=== PATIENT | female | born 1955 | race Caucasian/White ===

== ENCOUNTER 2024-10-11 05:51 | Observation (INO) | payer OTHER ==
[2024-10-06 09:52] VITALS: BP 155/74; PULSE 70; RESP 18; TEMP 97
[2024-10-06 09:53] LABS: BASOPHILS # (AUTO) 0.03 K/uL (0.00-0.20); BASOPHILS % (AUTO) 0.5 % (0.0-5.0); EOSINOPHILS # (AUTO) 0.23 K/uL (0.00-0.70); EOSINOPHILS % (AUTO) 3.9 % (0.0-8.0); HEMATOCRIT 40.6 % (36-48); IMMATURE GRANULOCYTE ABSOLUTE 0.02 K/uL (0-1); LYMPHOCYTES # (AUTO) 1.7 K/uL (1.0-4.8); LYMPHOCYTES % (AUTO) 29.1 % (21.0-51.0); MEAN CORPUSCULAR HEMOGLOBIN 30.6 pg (27.0-33.0); MEAN CORPUSCULAR VOLUME 92.7 fL (79-99); MONOCYTES # (AUTO) 0.6 K/uL (0.1-1.0); MONOCYTES % (AUTO) 10.8 % (3.0-13.0); NEUTROPHILS # (AUTO) 3.2 K/uL (1.8-7.7); NEUTROPHILS % (AUTO) 55.4 % (40.0-77.0); PLATELET COUNT (AUTO) 291 K/uL (130-400); RED BLOOD CELL COUNT(AUTO) 4.38 MIL/uL (4.00-5.50); RED CELL DISTRIBUTION WIDTH 12.7 % (11.0-15.5); WHITE BLOOD COUNT (AUTO) 5.9 K/uL (4.8-10.8)
--- NOTE | 2024-10-06 10:25 | NUR ---
RE: IS INITIAL IS INITIAL TEACHING DONE BY RT KAITLYNN DURING PREOP
[2024-10-06 11:20] LABS: APPEARANCE,URINE CLEAR (CLEAR); BILIRUBIN,URINE NEGATIVE (NEGATIVE); COLOR,URINE YELLOW (YELLOW); GLUCOSE, URINE (UA) NEGATIVE (NEGATIVE); KETONES,URINE NEGATIVE (NEGATIVE); LEUKOCYTE ESTERASE ,URINE 250 Leu/uL (NEGATIVE); NITRATE,URINE NEGATIVE (NEGATIVE); OCCULT BLOOD,URINE NEGATIVE (NEGATIVE); PROTEIN,URINE NEGATIVE (NEGATIVE); UROBILINOGEN,URINE 0.2 mg/dL (0.2-1.0)
[2024-10-06 11:25] LABS: ADD UA MICROSCOPIC YES
[2024-10-06 11:27] LABS: MUCUS,URINE RARE LPF (None Seen); RBC,URINE 0-1 /HPF (0-1); SQUAMOUS EPITHELIAL CELL,UR RARE /HPF (0-2)
--- NOTE | 2024-10-09 10:03 | NUR ---
RE: LABS REPORTED URINE CX RESULTS AND UA TO DR GONZALES, PATIENT ASYMPTOMATIC. NO NEW ORDERS RECEIVED.
[~2024-10-11] VITALS: Ht 167.6 cm; Wt 90.7 kg
[2024-10-11] VITALS (28 sets, daily range): BP systolic 102–156; BP diastolic 55–88; PULSE 50–94; RESP 15–19; TEMP 96.1–98.6; O2SAT 95–98
[~2024-10-11 05:51] MED LIST: BRIM5DRO21 OU; MESA1.2T3 PO; PRED5DRO17
[2024-10-11] MEDS: ceFAZolin SODIUM 2 GM VIAL ONE (06:18)
[2024-10-11] MEDS: FAMOTIDINE 20MG VIAL IV ONE (06:36)
[2024-10-11] MEDS: acetaMINOPHEN 100 ML ONE (06:36)
[2024-10-11] MEDS ORDERED: ROPivacaine 0.5% 5MG/ML 30ML ONE (06:38)
[2024-10-11] MEDS ORDERED: ketaMINE 50MG/ML SYRINGE 50 MG/ML DISP.SYRIN ONE (06:38)
[2024-10-11] MEDS: LACTATED RINGERS 1000ML 1,000 ML IV ONE (06:41)
[2024-10-11] MEDS ORDERED: LIDOCAINE PF 100MG/5ML (2%) SYRINGE 5ML ONE (06:49)
[2024-10-11] MEDS ORDERED: proPOFol 10 MG/ML 20ML VIAL IV ONE (06:50)
[2024-10-11] MEDS ORDERED: rocuRONium bROMide 10MG/1ML 5ML VL ONE ×2 (06:50→07:46)
[2024-10-11] MEDS ORDERED: FENTanyl CITRate PF 50 MCG/1 ML 2ML VIAL ONE (06:50)
[2024-10-11] MEDS ORDERED: TRANEXAMIC ACID 1000MG/10ML ONE (06:57)
--- NOTE | 2024-10-11 07:27 | DS ---
Discharge Summary Hospital Course Summary: The patient was admitted to the hospital postoperatively on 10/11/2024 after undergoing left total hip arthroplasty. They did well with routine postoperative pain control. They worked well with physical therapy. They developed some acute blood loss anemia but remained asymptomatic. The hospital course was otherwise uncomplicated. They were subsequently able to be discharged on postoperative day [] once discharge arrangements were made with []. Assessment/Plan: ASSESSMENT: [ ] PLAN: [ ] Discharge Instructions: Begin working with physical therapy at the facility. Remembered do not flex the hip more than 90 and do not cross midline at the knees or ankles for the 1st six weeks. If you are side sleeper place a pillow between the knees and ankles to prevent the legs from crossing. Dressing may be removed 10/13/2024 and left open to air. Showers ok allowing soap and water to run over the wound. Pat dry. Do not submerge wound in tub/pool. Do not apply ointments. Do not apply Betadine. Do not apply peroxide. Ice packs to decrease pain/swelling. Prescriptions have been sent to the pharmacy: *Lacassine 5/325mg 1-2 tab every 6 hours as needed for severe pain. (please call for refills) Cyclobenzaprine 5mg 1 tab every 8 hours as needed for muscle spasm pain. Gabapentin 100mg 1 tab every 8 hours (may discontinue if drowsy). Colace 100mg 1 tab orally twice a day as needed for constipation. Aspirin 325mg for 30 days to prevent blood clots. Call for a follow-up appointment in 2-3 weeks at [facility]. Home Medications: Reported Medications Mesalamine (Mesalamine) 1.2 Gram Tablet.dr, 1.2 GM PO BID, TAB 10/06/24 Prednisolone Acetate (Prednisolone Acetate) 1 % Drops.susp, 1 DROP HS 10/06/24 Brimonidine Tartrate/Timolol (Brimonidine-Timolol 0.2%-0.5%) 0.2 %-0.5 % Drops, 1 DROP OU BID 10/06/24 DIVINA GONZALES MD Oct 11, 2024 07:27
[2024-10-11] MEDS: ceFAZolin SODIUM 2 GM VIAL IVPB ONE (07:29)
[2024-10-11] MEDS ORDERED: PoTASSium chl 10% ELIXIR 20MEQ 20 MEQ/15 ML UDCUP PO PRN (07:30)
[2024-10-11] MEDS ORDERED: ondanSETRON 4MG INJ IVP PRN (07:30)
[2024-10-11] MEDS ORDERED: PoTASSium chloRIDE 20MEQ ER 20 MEQ ERTAB PO PRN (07:30)
[2024-10-11] MEDS ORDERED: CALCIUM CARB 500MG PO PRN (07:30)
[2024-10-11] MEDS ORDERED: PoTASSium chloRIDE 20MEQ/100ML 100 ML IV PRN (07:30)
[2024-10-11] MEDS ORDERED: FERROUS FUMARATE 324 MG TABLET PO PRN (07:30)
[2024-10-11] MEDS ORDERED: dexaMETHasone SOD PHOSPHATE 10MG/ML 1ML VIAL ONE (07:36)
[2024-10-11] MEDS ORDERED: ondanSETRON 4MG INJ ONE (07:36)
[2024-10-11] MEDS ORDERED: phenylEPHRINE HCL 10 MG/ML 1ML VIAL IV ONE (07:58)
[2024-10-11] MEDS ORDERED: NEOSTIGMINE METHYLSULFATE 1MG/ML IV ONE (07:58)
[2024-10-11] MEDS ORDERED: GLYCOPYRROLATE 0.2 MG/ML 5 ML VIAL ONE (07:58)
[2024-10-11] MEDS: MEPERIDINE-PF 100 MG/ML SYG ONE (10:35)
--- NOTE | 2024-10-11 11:30 | NUR ---
arrived from [facility] patient arrived from [facility], vitals stable on 3L nc oxygen, family at bedside, reports nausea and pain 10/10. Drowsy, oriented x4, answers appropriately. neurovascular assessment documented under intervention respiratory therapist contacted for incentive spirometer
--- NOTE | 2024-10-11 11:57 | HMCIMG ---
HIP BILAT 2VW HISTORY: Hip surgery COMPARISON: None TECHNIQUE: 4 images of bilateral hips were obtained. FINDINGS: There is no acute displaced fracture or dislocation. There is left hip prosthesis. Alignment appears be grossly adequate. Vascular calcifications are seen. Degenerative changes are seen. IMPRESSION: 1. Findings as described above.
--- NOTE | 2024-10-11 12:00 | OP ---
Operative Note: DATE OF PROCEDURE: 10/11/24 SURGEON: DIVINA GONZALES MD TSO: Kiara Sharif ANESTHESIA: General and fascia iliaca block ANESTHESIOLOGIST/FUR TANNER: Harriet Loaiza PREOPERATIVE DIAGNOSIS: Left hip osteoarthritis POSTOPERATIVE DIAGNOSIS: Left hip osteoarthritis PROCEDURE: Left total hip arthroplasty ESTIMATED BLOOD LOSS: 200 cc INDICATIONS: A 69-year-old female with left hip osteoarthritis failing conservative management. After discussion of the risks, benefits, and alternatives, the patient voluntarily agreed to undergo the aforementioned procedure. IMPLANTS: [employer]hew 52 mm R3 acetabular component with 6.5 mm screws x2 and central hole cover, 0 degree XLPE polyethylene liner, size 8 standard offset anthology stem with a 36 mm Oxinium +0 head DESCRIPTION OF PROCEDURE: Patient was properly identified in the preoperative holding area. Surgical site marking was verified and surgery consent reviewed. The patient was then taken to the operating room and placed in supine position on the OR table. After induction of general anesthesia, preoperative antibiotics were given. The patient was then transitioned in the lateral decubitus position with the left side up. All bony prominences were well-padded. Left lower extremity was then prepped and draped in the usual sterile fashion. Surgical time out was done verifying correct surgery, side, site, and location to be performed. We then began the procedure by making approximately 15 cm long incision centered over the greater trochanter. Here we came sharply through skin down to the fascia. Hemostasis was then achieved using Bovie electrocautery. We then incised fascia in line with the skin incision and finger split the tensor muscle proximally. We then placed our Charnley retractor. At this point we identified the vastus ridge and began elevating the full-thickness soft tissue flap off of the vastus ridge, splitting the vastus lateralis and gluteus muscles as necessary. We then proceeded to externally rotate the femur while making this flap. We resected part of the anterior capsule. The femoral head and neck was then delivered into view. We then dislocated the hip and performed our femoral neck osteotomy approximately a fingerbreadth proximal lesser trochanter. We then placed our retractors around the superior and anterior portion of the acetabulum and began to remove the labrum circumferentially. We then began reaming the acetabulum where we reamed up to a size 51 ensuring appropriate anteversion and abduction. We then proceeded to trial with the size 51 acetabular component and this appeared to sit well. We opened our size 52 acetabular component and after irrigating out the wound malleted this into place. It appeared to have good press-fit however we elected to place two of the 6.5 mm screws as well. We drilled and filled the screws in standard fashion in the posterior superior portion of the cup. We then placed the manhole cover on the center of the cup. The wound was thoroughly irrigated out further and we placed the acetabular liner and impacted this in place in standard fashion. We then proceeded to reposition our retractors to elevate the proximal femur out of the wound. We then used the box chisel and canal finder to began preparing the femoral side and sequentially broached up to the aforementioned size stem. Once we felt we had good fit, fill, and control of the femur with the stem in place we then used our trial head component and reduce the hip. Upon reduction, we had appropriate soft tissue tensioning, limb length and stable range of motion. We therefore dislocated the hip once more removed our trial components thoroughly irrigated the out the wound and placed our final components in standard fashion. The hip was then reduced with the final components in place. It was found to be stable through range of motion with appropriate soft tissue tensioning and appropriate limb length. At this point we placed a bump under the knee and the foot on the male with a stack of towels to allow for internal rotation. We repaired the abductors back to the greater trochanter using #5 Ethibond. We then repaired the rent in the vastus lateralis and gluteus muscles using #1 Vicryl in a running fashion. We removed our Charnley retractor and began to repair the IT band using #1 Vicryl in interrupted [id number] fashion. At this point we began to close her s ubcutaneous tissue using 2-0 Vicryl. Running 3-0 Monocryl in subcuticular fashion with Dermabond placed over this for the skin. Island barrier dressing was then applied. Patient was returned to supine position with abduction pillow placed, awakened from anesthesia, and taken to the recovery room in stable condition. DIVINA GONZALES MD Oct 11, 2024 12:00
[2024-10-11] MEDS: ketOROlac 15MG/ML VIAL (15MG/ML) IV SCH ×2 (12:06→19:58)
[2024-10-11] MEDS ORDERED: ceFAZolin SODIUM 2 GM VIAL IVP SCH (12:30)
--- NOTE | 2024-10-11 12:30 | HMCIMG ---
INTRAOPERATIVE FLUOROSCOPIC GUIDANCE UP TO 1 HOUR. IMPRESSION: Intraoperative fluoroscopic guidance was provided for ORIF left PAULA, which was performed by Dr. Red. Total fluoroscopy time was 10.1 seconds, and administered dose, 1.9 mGy. A total of 5 spot images obtained. Please refer to the orthopedic procedure note for further details.
[2024-10-11] MEDS: TIMOLOL OU SCH (12:44)
[2024-10-11] MEDS: polyETHYLene GLYCol 3350 17 GM POWD.PACK PO SCH (12:44)
[2024-10-11] MEDS: BRIMONIDINE TARTRATE OU SCH (12:44)
[2024-10-11] MEDS: doCUSate SODIUM 100 MG CAP PO SCH (12:44)
[2024-10-11] MEDS: GABApentin 100 MG CAPSULE PO SCH (12:44)
[2024-10-11] MEDS: MESALAMINE 1.2 GM PO SCH (12:44)
[2024-10-11] MEDS: HYDROcodone/APAP 5/325 1 TAB TABLET PO PRN (13:06)
--- NOTE | 2024-10-11 13:45 | NUR ---
Order received and patient evaluated. Patient attempted to walk to bathroom with Pt however reported dizziness. BP sitting noted at 78/42. Patient sat on BSC with some improvement in her symptoms. Patient returned to bed with BP noted at 60/33. Nurse notified, note left on comm board. Patient is to use BSC or bedpan until PT sees her again 10/12. PT team to follow. Addendum: 10/11/24 at 1732 by MAYO [place] PT Amended: Links added.
[2024-10-11] MEDS: 0.9%NACL 1000ML 1,000 ML IV SCH (14:33)
--- NOTE | 2024-10-11 15:00 | NUR ---
ORTHO COORDINATOR: TEACHING REGARDING DVT AND PNEUMONIA PREVENTION, PAIN EXPECTATIONS AND PAIN MANAGEMENT. PATIENT IN BED, AT BEDSIDE. B SCD SLEEVES IN PLACE AND FUNCTIONING. INCENTIVE SPIROMETER AT BEDSIDE. PATIENT RETURN DEMONSTRATED PROPER USE OF INCENTIVE SPIROMETER AND FOOT FLEXION/EXTENSION EXERCISES. NUMERIC PAIN SCALE REVIEWED. PATIENT REMINDED PAIN MEDICATION MUST BE REQUESTED. INSTRUCTED PATIENT TO REPORT PAIN LEVEL AND TYPE OF PAIN. PATIENT VERBALIZED UNDERSTANDING. PATIENT PLANS ON REHAB AFTER HOSPITAL DISCHARGE. NO ADDITIONAL QUESTION/CONCERNS AT THIS TIME.
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
[2024-10-11] MEDS: traMADol HCL 50 MG TABLET PO PRN (16:13)
[2024-10-11] MEDS: ceFAZolin SODIUM 2 GM VIAL IVP SCH (16:13)
[2024-10-11] MEDS: PREDNISOLONE 1% OP SCH (19:49)
[2024-10-12] VITALS (7 sets, daily range): BP systolic 111–137; BP diastolic 57–76; PULSE 71–84; RESP 17–20; TEMP 97.3–98.8; O2SAT 97
[2024-10-12 05:02] LABS: MEAN CORPUSCULAR HEMOGLOBIN 30.6 pg (27.0-33.0); MEAN CORPUSCULAR HGB CONC 33.1 g/dL (32.0-36.0); MEAN CORPUSCULAR VOLUME 92.5 fL (79-99); RED BLOOD CELL COUNT(AUTO) 3.46 MIL/uL (4.00-5.50); WHITE BLOOD COUNT (AUTO) 12.5 K/uL (4.8-10.8)
[2024-10-12 05:22] LABS: CREATININE 0.7 mg/dL (0.5-1.0); POTASSIUM 4.1 mmol/L (3.5-5.1)
[2024-10-12] MEDS: ASPIRIN 325MG EC TAB PO SCH (08:09)
[2024-10-12] MEDS: ketOROlac 15MG/ML VIAL (15MG/ML) IV PRN (08:10)
[2024-10-12] MEDS: CYCLOBENZAPRINE HCL 10 MG TABLET PO PRN (13:02)
[2024-10-12] MEDS ORDERED: ASPI-891 PO (16:37)
[2024-10-12] MEDS ORDERED: DOCU-116 PO (16:37)
[2024-10-12] MEDS ORDERED: HYDR-4060 PO (16:37)
[2024-10-12] MEDS ORDERED: CYCL-309 PO (16:37)
--- NOTE | 2024-10-12 17:04 | NUR ---
Report Report call report to Lillie mcconnell [facility], pending patient to be picked up at this time.
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
[2024-10-13] VITALS: BP 129/72; PULSE 81; RESP 16; TEMP 98.1
[2024-10-13 04:00] VITALS: BP 142/72; PULSE 80; RESP 19; TEMP 98.3
[2024-10-13 08:00] VITALS: BP 126/72; PULSE 90; RESP 17; TEMP 97.7
[2024-10-13 09:35] VITALS: O2SAT 91
[2024-10-13 12:00] VITALS: BP 133/73; PULSE 85; RESP 18; TEMP 101
--- NOTE | 2024-10-13 13:45 | NUR ---
REPORT GIVEN TO JD HARRIS AT [facility]. PATIENT HAS NO IV ACCESS TO REMOVE. ALL QUESTIONS AND CONCERNS ANSWERED. PATIENT'S LEFT HOME WITH PATIENT PERSONAL CLOTH, PATIENT WILL BE DISCHARGE WITH HOSPITAL GOWN. PENDING FACILITY VAN TO ARRIVE.
--- NOTE | 2024-10-13 15:10 | NUR ---
[facility] HAS ARRIVED FOR PICKUP.
[2024-10-14] MEDS ORDERED: BisaCODYL 10 MG SUPP.RECT RC PRN (07:30)
== END 2024-10-13 15:30 ==
LOC: DAH 05:51 → DAHIP 05:52 → 4AH 11:30
PROVIDERS: ADMIT Student in an Organized Health Care Education/Training Program; ATTEND Student in an Organized Health Care Education/Training Program
DX: M16.12 Unilateral primary osteoarthritis, left hip (principal); G89.18 Other acute postprocedural pain; M21.70 Unequal limb length (acquired), unspecified site; E66.9 Obesity, unspecified; Z79.899 Other long term (current) drug therapy; Z68.32 Body mass index [BMI] 32.0-32.9, adult
CPT/HCPCS: 85025; 87086; 84134; 81001; 36415 ×2; 87641; 96376 ×2; 96365; 96375; 73503; 64447; 27130; 73521; 97161; 97116 ×4; 96366; 80048; 85027; 97530 ×4; 82948; G0378 ×49; A4600 ×2; A4223 ×2; A4663; C1776; J7120; J3490 ×7; J3010; J1100; J2003; J2704; J2405 ×2; J2710; J2175; J2795; J1885 ×5; J2371; J0690 ×4; A4649 ×2; A4930; A6255; A5120; A4215; A4213; A4222; A4221; A4216; J7030